=== PATIENT | female | born 1990 | race Two or more races ===

== ENCOUNTER 2017-02-11 17:24 | Outpatient (CLI) | payer OTHER ==
[~2017-02-11 17:24] MED LIST: HYDROCODON-ACE1 EAC7 PO; LIDOCAINE700 MG TD; NAPROSYN500 MG PO; TRAMADOL HCL50 MG PO
[2017-02-11 17:38] VITALS: BP 133/81
== END 2017-02-11 18:45 | disposition home or self-care (01) ==
LOC: LDRP-OP 17:24 → 2WEST 17:25
DX: O36.8120 Decreased fetal movements, second trimester, not applicable or unspecified (principal); Z3A.40 40 weeks gestation of pregnancy
CPT/HCPCS: 59025; G0378

== ENCOUNTER 2017-02-13 04:08 | Inpatient (IN) | payer OTHER ==
[~2017-02-13] VITALS: Ht 157.5 cm; Wt 81.6 kg
[2017-02-13] VITALS (30 sets, daily range): BP systolic 105–146; BP diastolic 55–85
[2017-02-13] MEDS ORDERED: PRENATAL TABLE1 EAC3 PO (04:47)
[2017-02-13] MEDS ORDERED: PROAIR RESPICL90 MCG IH (04:50)
[2017-02-13 06:29] LABS: BASOPHIL COUNT 0.1 K/uL (0-0.1); EOSINOPHIL (%) 0.5 % (0-5); EOSINOPHIL COUNT 0.1 K/uL (0-0.3); HEMATOCRIT 36.8 % (36.0-46.0); IMMATURE GRANULOCYTE (%) 1.2 % (0.0-0.7); IMMATURE GRANULOCYTE COUNT 0.2 K/uL; INSTRUMENT ABS NEUTROPHIL CT 14.1 K/uL; MCHC 32.9 G/DL (30.0-36.0); MEAN PLAT.VOLUME 11.2 uM^3 (9.5-12.4); MONOCYTE (%) 4.9 % (3-12); MONOCYTE COUNT 0.8 K/uL (0-0.8); NEUTROPHIL (%) 81.7 % (45-76); NEUTROPHIL COUNT 14.1 K/uL (1.8-6.4); PLATELET COUNT 211 K/uL (156-360); RBC DIS.WIDTH-CV 14.6 % (11.8-14.6); RBC DIS.WIDTH-SD 41.9 % (39-53); RED BLOOD COUNT 4.66 M/uL (3.80-5.20); WHITE BLOOD COUNT 17.3 K/uL (4.1-10.2)
[2017-02-13 07:56] LABS: AMPHETAMINES QUANT VALUE 0 NG/ML; BARBITUATES QUANT VALUE 0 NG/ML; BENZODIAZEPINES QUANT VALUE 0 NG/ML; BENZODIAZEPINES, URINE SCREEN Negative (200 ng/mL); MARIJUANA QUANT VALUE 0 NG/ML; OPIATES QUANTITATIVE VALUE 0 NG/ML; PHENCYCLIDINE QUANT VALUE 0 NG/ML
[2017-02-13] MEDS ORDERED: IBUPROFEN800 MG PO (23:15)
[2017-02-14 00:56] VITALS: BP 118/65
[2017-02-14 02:02] VITALS: BP 121/66
[2017-02-14 07:23] VITALS: BP 134/70
[2017-02-14 15:00] VITALS: BP 118/73
[2017-02-14 23:00] VITALS: BP 120/80
[2017-02-15 07:16] VITALS: BP 120/67
[2017-02-15 14:50] VITALS: BP 116/68
== END 2017-02-15 17:28 | disposition home or self-care (01) | DRG 775 ==
LOC: LDRP-OP 04:08 → 2WEST 04:09 → LDRP-OP 03-10 18:48
PROVIDERS: Midwife
DX: O70.0 First degree perineal laceration during delivery (principal); Z37.0 Single live birth; Z3A.40 40 weeks gestation of pregnancy; O99.89 Other specified diseases and conditions complicating pregnancy, childbirth and the puerperium; M54.16 Radiculopathy, lumbar region; O99.52 Diseases of the respiratory system complicating childbirth; J45.909 Unspecified asthma, uncomplicated; O99.324 Drug use complicating childbirth; F12.90 Cannabis use, unspecified, uncomplicated; O99.334 Smoking (tobacco) complicating childbirth; F17.200 Nicotine dependence, unspecified, uncomplicated
CPT/HCPCS: 72148; 80306 90; 85025; 97530 GP; C1755; J0595; J2405; J3010; J7120